=== PATIENT | female | born 1950 | race African-American/Black ===

== ENCOUNTER 2016-07-10 10:13 | Emergency (ER) | payer MEDICARE, OTHER ==
[~2016-07-10] VITALS: Ht 167.6 cm; Wt 61.0 kg
[2016-07-10] MEDS ORDERED: LISI-660 PO (10:33)
[2016-07-10] MEDS ORDERED: AMLO-511 PO (10:33)
[2016-07-10] MEDS ORDERED: CLON.2 PO (10:33)
[2016-07-10 12:01] LABS: BASOPHILS # (AUTO) 0.02 K/uL (0.00-0.20); BASOPHILS % (AUTO) 0.5 % (0.0-2.0); EOSINOPHILS # (AUTO) 0.01 K/uL (0.00-0.70); EOSINOPHILS % (AUTO) 0.22 % (1.0-6.0); HEMATOCRIT 47.3 % (36-46); HEMOGLOBIN 15.6 g/dL (12.0-16.0); LYMPHOCYTES # (AUTO) 1.4 K/uL (1.0-4.8); LYMPHOCYTES % (AUTO) 31.6 % (22.0-44.0); MEAN CORPUSCULAR HEMOGLOBIN 26.6 pg (26.0-34.0); MEAN CORPUSCULAR HGB CONC 32.9 G/dL (31.0-37.0); MEAN CORPUSCULAR VOLUME 81 fL (80-100); MONOCYTES # (AUTO) 0.3 K/uL (0.1-1.0); NEUTROPHILS # (AUTO) 2.7 K/uL (1.8-7.7); NEUTROPHILS % (AUTO) 60.8 % (40.0-70.0); PLATELET COUNT (AUTO) 205 K/uL (150-450); RED BLOOD CELL COUNT(AUTO) 5.86 MIL/uL (4.00-5.20); RED CELL DISTRIBUTION WIDTH 15.7 % (11.5-14.5); WHITE BLOOD COUNT (AUTO) 4.5 K/uL (4.5-11.0)
[2016-07-10 12:05] LABS: ANION GAP 9 mmol/L (8-16); CALCIUM, TOTAL 10.1 mg/dL (8.8-10.5); CARBON DIOXIDE 25 mmol/L (22-29); CHLORIDE 103 mmol/L (98-107); CREATININE 0.81 mg/dL (0.60-1.30); GLOMERULAR FILTR. RATE CALC > 60 mL/min (>60); POTASSIUM 3.9 mmol/L (3.5-5.1); SODIUM SERUM 137 mmol/L (136-145); UREA NITROGEN, BLOOD 21 mg/dL (7-18)
[2016-07-10 12:30] LABS: ALANINE AMINOTRANSFERASE 22 U/L (12-78); ALBUMIN 4.2 g/dL (3.4-5.0); ASPARTATE AMINOTRANSFERASE 19 U/L (15-37); BILIRUBIN,TOTAL 0.4 mg/dL (0.1-1.0); CREATINE KINASE MB 1.3 ng/mL (0-5); CREATINE KINASE, TOTAL 121 U/L (26-192); TOTAL PROTEIN, SERUM 8.6 g/dL (6.4-8.2)
[2016-07-10 13:28] VITALS: BP 146/86
== END 2016-07-10 13:38 | disposition home or self-care (01) ==
LOC: EMS 10:16
DX: R42 Dizziness and giddiness (principal); R00.2 Palpitations; I11.9 Hypertensive heart disease without heart failure; I51.9 Heart disease, unspecified; Z88.2 Allergy status to sulfonamides
CPT/HCPCS: 93005; 99285